=== PATIENT | male | born 1995 | race Caucasian/White ===

== ENCOUNTER 2024-03-11 00:17 | Emergency (ER) | payer OTHER ==
[~2024-03-11] VITALS: Ht 180.3 cm; Wt 75.0 kg
[2024-03-11] MEDS ORDERED: ciprofloxacin 0.3% 2.5ml ophthalmic solution RIGHTEYE ONE (01:30)
[2024-03-11] MEDS: naproxen 500mg tablet PO ONE (01:39)
[2024-03-11] MEDS: HYDROcodone/acetaminophen 10/325mg tab PO ONE (01:39)
[2024-03-11 02:02] VITALS: BP 134/79; PULSE 74; RESP 16; TEMP 98; O2SAT 99
== END 2024-03-11 02:03 | disposition home or self-care (01) ==
LOC: ER 00:18
DX: S93.402A Sprain of unspecified ligament of left ankle, initial encounter (principal); Z98.890 Other specified postprocedural states; X58.XXXA Exposure to other specified factors, initial encounter; Y93.89 Activity, other specified; Y92.89 Other specified places as the place of occurrence of the external cause; Y99.8 Other external cause status
CPT/HCPCS: 29515; 73610; 99283; L1930